=== PATIENT | male | born 1965 | race Caucasian/White ===

== ENCOUNTER 2024-11-04 10:22 | Emergency (ER) | payer MEDICAID ==
[~2024-11-04] VITALS: Ht 165.1 cm; Wt 55.8 kg
[2024-11-04 11:08] LABS: BASO # 0.0 10*3/uL (0.0-0.1); BASO % 0.1 % (0.0-1.0); EOS # 0.0 10*3/uL (0.0-0.4); EOS % 0.2 % (1.0-4.0); MEAN CELL VOLUME 86.2 fl (80.0-94.0); MEAN CORPUSCULAR HGB 28.3 pg (27.0-31.0); MEAN PLATELET VOLUME 9.0 fl (9.6-12.3); MONO # 0.4 10*3/uL (0.1-1.0); MONO % 4.0 % (3.0-9.0); NEUT # 7.9 10*3/uL (2.3-7.9); NEUT % 82.5 % (47.0-73.0); NUCLEATED RED BLOOD CELL 0.0 % (0.0-0.0); NUCLEATED RED BLOOD CELL 0.0 10*3/uL (0.0-0.0); PLATELET COUNT AUTOMATED 280 10*3/uL (130-400); RED CELL DISTRI WIDTH 13.5 % (0-14.5)
[2024-11-04 11:29] LABS: BUN 17 mg/dl (9-23); SGPT/ALT 22 U/L (5-49)
[2024-11-04] MEDS ORDERED: IOHEXOL 350 MG/ML 100 ML VIAL IV ONE ×2 (12:00→12:24)
[2024-11-04] MEDS ORDERED: SODIUM CHLORIDE 0.9% 100 ML BAG IV ONE (12:00)
[2024-11-04] MEDS ORDERED: SODIUM CHLORIDE 0.9% 100 ML IV ONE (12:24)
[2024-11-04] MEDS ORDERED: MG-AL HYDROXIDE/SIMETICONE 30 ML UDC PO ONE (14:25)
[2024-11-04] MEDS ORDERED: VENT7GM INH (15:04)
[2024-11-04] MEDS ORDERED: Ondansetron4 MG PO (15:04)
== END 2024-11-04 15:17 | disposition home or self-care (01) ==
LOC: ED 10:22
PROVIDERS: Emergency Medicine
DX: R07.89 Other chest pain (principal); R05.9 Cough, unspecified; F17.200 Nicotine dependence, unspecified, uncomplicated; Z88.0 Allergy status to penicillin